=== PATIENT | female | born 1985 | race Caucasian/White ===

== ENCOUNTER 2016-07-19 19:57 | Inpatient (IN) ==
[2016-07-19] MEDS ORDERED: AMBIEN PO PRN (20:11)
[2016-07-19] MEDS ORDERED: TYLENOL PO PRN (20:11)
[2016-07-19] MEDS ORDERED: PEPCID PO ONE (20:11)
[2016-07-19] MEDS ORDERED: PEPCID PO PRN (20:11)
[2016-07-19] MEDS ORDERED: PEPCID IV PRN (20:11)
[2016-07-19] MEDS ORDERED: BRETHINE SUBQ PRN (20:11)
[2016-07-19] MEDS ORDERED: STADOL IV PRN ×2 (20:11)
[2016-07-19] MEDS ORDERED: ZOFRAN IV PRN (20:11)
[2016-07-19] MEDS ORDERED: REGLAN PO ONE (20:11)
[2016-07-19] MEDS ORDERED: KEFZOL 1 GM/D5W 1 GM/50 ML IVPB IV PRN (20:11)
[2016-07-19] MEDS: LR 1,000 ML IV ONE (21:15)
[2016-07-19 21:43] LABS: MANUAL DIFF NEEDED? NO
[2016-07-19 21:43] LABS: URINE SOURCE VOIDED
[2016-07-19 22:00] LABS: BASO% 0.3 % (0.0-0.8); EOS# 0.24 X1000 (0.0-0.7); EOS% 1.7 % (0.0-10.0); IMM GRAN# 0.15 X1000 (0.0-0.04); LYMPH# 3.28 X1000 (1.2-3.4); LYMPH% 22.8 % (20.5-51.1); MCH 29.2 PG (27-31); MCHC 34.3 g/dL (33-37); MCV 85.2 FL (81-99); MONO# 1.48 X1000 (0.11-0.59); MONO% 10.3 % (1.7-9.3); MPV 10.9 FL (7.4-10.4); NEUT% 63.9 % (42.2-75.2); PLT 280 X1000 (130-400); RBC 4.11 XMIL (4.2-5.4)
[2016-07-19] MEDS ORDERED: CYTOTEC PO ONE (22:00)
[2016-07-19 22:08] LABS: UR AMPHETAMINES QUAL NONE DETECTED (NONE DETECT); UR BARBITUATES QUAL NONE DETECTED (NONE DETECT); UR BENZODIAZEPIN QUAL NONE DETECTED (NONE DETECT); UR CANNABINOIDS QUAL NONE DETECTED (NONE DETECT); UR COCAINE QUAL NONE DETECTED (NONE DETECT); UR MDMA QUAL NONE DETECTED (NONE DETECT); UR METHADONE QUAL NONE DETECTED (NONE DETECT); UR METHAMPHETAMINE QUAL NONE DETECTED (NONE DETECT); UR OPIATES QUAL NONE DETECTED (NONE DETECT); UR OXYCODONE QUAL NONE DETECTED (NONE DETECT); UR PCP QUAL NONE DETECTED (NONE DETECT); UR TCA QUAL NONE DETECTED (NONE DETECT)
[2016-07-19 22:23] LABS: BILIRUBIN URINE NEGATIVE (NEGATIVE); BLOOD URINE NEGATIVE (NEGATIVE); CLARITY CLEAR (CLEAR); COLOR YELLOW; GLUCOSE URINE NEGATIVE (NEGATIVE); LEUKOCYTES URINE 1+ (NEGATIVE); NITRITE URINE NEGATIVE (NEGATIVE); PH URINE 6.5; PROTEIN URINE NEGATIVE (NEGATIVE); UROBILINOGEN URINE NORMAL
[2016-07-20] MEDS: LR 1,000 ML IV ONE ×2 (00:01→07:45)
[2016-07-20] MEDS: STADOL IV PRN ×2 (00:05→04:19)
[2016-07-20] MEDS ORDERED: CYTOTEC PO SCH (02:00)
[2016-07-20] MEDS ORDERED: FENTANYL-BUPIV-NS 2 MCG-0.1% 200 ML EPIDURAL PRN (02:17)
[2016-07-20] MEDS ORDERED: MARCAINE 0.25% PF INJ PRN (02:17)
[2016-07-20] MEDS ORDERED: PITOCIN 30 UNITS/LR 30 UNITS/500 ML IV.SOLN IV SCH (07:00)
[2016-07-20] MEDS ORDERED: XYLOCAINE-MPF 1% INJ ONE (07:07)
[2016-07-20] MEDS ORDERED: MINERAL OIL MISC ONE (07:07)
[2016-07-20] MEDS: LR 1,000 ML IV SCH ×3 (09:04→17:24)
[2016-07-20] MEDS ORDERED: PEPCID IV ONE (11:30)
[2016-07-20] MEDS ORDERED: BICITRA PO ONE (11:30)
[2016-07-20] MEDS ORDERED: XYLOCAINE-MPF 2% ONE (14:44)
[2016-07-20] MEDS ORDERED: MARCAINE 0.5% PF ONE (15:03)
[2016-07-20] MEDS ORDERED: NAROPIN 0.2% ONE (17:22)
[2016-07-20] MEDS ORDERED: PITOCIN ONE ×2 (19:06→19:19)
[2016-07-20] MEDS ORDERED: BICITRA ONE (19:06)
[2016-07-20] MEDS ORDERED: TORADOL ONE (19:19)
[2016-07-20] MEDS ORDERED: ZOFRAN ONE (19:19)
[2016-07-20] MEDS ORDERED: FENTANYL ONE (19:25)
[2016-07-20] MEDS ORDERED: DURAMORPH ONE (19:25)
[2016-07-20] MEDS ORDERED: DULCOLAX PR PRN (19:29)
[2016-07-20] MEDS ORDERED: MYLICON PO PRN (19:29)
[2016-07-20] MEDS ORDERED: CYTOTEC PO PRN (19:29)
[2016-07-20] MEDS ORDERED: AMBIEN PO PRN (19:29)
[2016-07-20] MEDS ORDERED: PHENERGAN IM PRN (19:29)
[2016-07-20] MEDS ORDERED: PERCOCET-5 PO PRN (19:29)
[2016-07-20] MEDS ORDERED: M-M-R II VACCINE SUBQ ONE (19:29)
[2016-07-20] MEDS ORDERED: DEMEROL IM PRN (19:29)
[2016-07-20] MEDS ORDERED: HYDROXYZINE IM PRN (19:29)
[2016-07-20] MEDS ORDERED: PITOCIN IM PRN (19:29)
[2016-07-20] MEDS ORDERED: HYDROXYZINE PO PRN (19:29)
[2016-07-20] MEDS ORDERED: BOOSTRIX VACCINE IM ONE (19:29)
[2016-07-20] MEDS ORDERED: DEMEROL PO PRN ×2 (19:29)
[2016-07-20] MEDS ORDERED: PITOCIN 10 UNITS/LR 10 UNIT/1,000 ML IV.SOLN IV SCH (19:30)
[2016-07-20] MEDS ORDERED: LR 1,000 ML ONE (19:39)
--- NOTE | 2016-07-20 19:41 | HISTORY AND PHYSICAL ---
PREOPERATIVE DIAGNOSES: 1. Intrauterine at 40 and 3 weeks. Arrest of dilation. 2. Arrest of descent. 3. Nonreassuring heart tones. PLANNED PROCEDURE: Primary low transverse section. HISTORY: Ms. Guadalupe is a 30-year-old, 2, para 1, with estimated date of delivery of 07/17/2016 who was admitted last night for routine labor induction. She was closed and she was given Cytotec overnight. There were some heart tone rate decelerations, but good recovery. In the morning, she was started on Pitocin. Had decelerations throughout the day, but always maintaining good [id number]-[id number]-xgor, no real concern of the baby, but she made very slow progress. At this point, she has been 8 cm for approximately 2 hours and has not advanced past a -2 station with caput forming and have discussed with patient probability of delivery with the above findings the patient agrees, and all questions were answered regarding this. PAST DELIVERY: Vaginal delivery at 37 weeks of a 6 pound viable female infant. PAST MEDICAL HISTORY: She has no past medical history. PAST SURGICAL HISTORY: She has no past surgical history. ALLERGIES: She has no known drug allergies. MEDICATIONS: She is on [id number] vitamins. Again, no allergies. SOCIAL HISTORY: She lives with her and their daughter. She denies tobacco, alcohol, or drug use. FAMILY HISTORY: Noncontributory. PHYSICAL EXAMINATION: VITAL SIGNS: Have been stable. GENERAL: She is alert and she is cooperative. NECK: Supple. LUNGS: Clear. HEART: Regular sinus rhythm. ABDOMEN: Gravid. PELVIC: Exam as above. EXTREMITIES: No cyanosis clubbing edema. LABORATORY: Hemoglobin and hematocrit 12/35, platelets are 280,000. She has had normal labs. Her GBS was negative. She passed her 1 hour oral glucose tolerance test. Rubella immune. Hepatitis B nonreactive. RPR nonreactive. HIV nonreactive. GC and Chlamydia negative. ASSESSMENT: As above. PLAN: Primary low transverse section. cc: Jack Mata MD
[2016-07-20 20:06] LABS: BE -9.7 mmoll (-3.0-3.0); BLOOD TYPE ARTERIAL; METHB 1.8 % (0.0-1.5); O2(CT) 1.3 mL/dL (15.0-23.0); SAMPLE BLOOD; SAO2 5.7 % (95.0-100.0); THB 16.9 g/dL (11.5-17.4)
[2016-07-20 20:10] LABS: DRAW SITE UMBILICAL; PCO2(98.6) 81 mmHg (35-45); pH(98.6) 7.06 (7.35-7.45)
[2016-07-20 20:11] LABS: ALLEN TEST NO; MODALITY ROOM AIR; PO2(98.6) 9 mmHg (60-100)
[2016-07-20] MEDS ORDERED: ZOFRAN ODT PO PRN (21:08)
[2016-07-20] MEDS ORDERED: ZOFRAN IV PRN ×2 (21:08)
[2016-07-20] MEDS ORDERED: BENADRYL IV PRN (21:08)
[2016-07-20] MEDS ORDERED: NARCAN INJ PRN (21:08)
[2016-07-20] MEDS ORDERED: DILAUDID IV PRN (21:11)
--- NOTE | 2016-07-20 23:49 | OPERATIVE NOTE ---
PROCEDURE DATE: 07/20/2016 PREOPERATIVE DIAGNOSES: 1. Intrauterine at 40 and 3. 2. Arrest of dilation. 3. Arrest of descent. 4. Nonreassuring heart tones. POSTOPERATIVE DIAGNOSES: 1. Intrauterine at 40 and 3. 2. Arrest of dilation. 3. Arrest of descent. 4. Nonreassuring heart tones. 5. Occiput posterior. FINDINGS: Viable male . Do not have Apgars at this time, nor do I have a cord pH at this time. Weight was 8 pounds 5 ounces. The patient's right ovary was scarred to her posterior uterus. That was dissected off. ESTIMATED BLOOD LOSS: 600 mL. COMPLICATIONS: No complications. COUNTS: All counts correct. DRAINS: Paul catheter. DESCRIPTION OF PROCEDURE: Please refer to Ms. Guadalupe's records and H and P. She was admitted last night. Received Cytotec and Pitocin today. Had heart tone decelerations, and did not progress. Decision was made to proceed with delivery. She was brought to the operating room, where her epidural was dosed. She was then prepped and draped. A Paul catheter had already been inserted. Adequate anesthesia was verified to the T10 level. A Pfannenstiel skin incision was made across the lower abdomen. Subcutaneous tissue was cut down to the fascia. The cut on the fascia was extended laterally with curved Arzate's. Slightly dissected off of the underlying rectus muscle. Muscle pulled to the side. Peritoneum entered bluntly. Bladder blade was placed. Hysterotomy incision was made in the lower uterine segment in the midline, then extended by pulling cephalad and caudad. The infant pulled out of the pelvis, lifted out of the pelvis, converted from occiput posterior to occiput anterior and delivered. Cord doubly clamped and then cut. Care of infant taken over by nursery personnel. A section of the cord was clamped off for cord pH, and then cord blood was obtained. Uterus was massaged to deliver the placenta, which delivered intact. Uterus was then exteriorized, and wiped free of clots and remaining placental tissue. Hysterotomy incision was closed in a single layer with a 1-0 chromic running and locking. Good hemostasis was noted. Inspection revealed the right ovary adhesed to the posterior uterus. This was dissected off with the Bovie. It was hemostatic. Uterus put back into the abdomen. Both ovaries and tubes were normal, as was the fundus of the uterus. The uterus was put back into the abdomen. Irrigation was done. Good hemostasis. Bladder allowed to fall into place. The peritoneum was reapproximated with 0 chromic. Muscle plicated in the midline with same 0 chromic. Fascia reapproximated with interrupted stitches of 0 Vicryl, followed by a running nonlocking stitch of 0 Vicryl. Subcutaneous tissue irrigated and made hemostatic by electrocautery, and then Marie's fascia was closed with 3-0 chromic. The skin was closed with 4-0 Biosyn in a subcuticular stitch. All counts were correct. She was taken to the recovery room in stable condition. cc: Jack Mata MD
[2016-07-21] MEDS: TORADOL IV SCH ×3 (03:23→09:09)
[2016-07-21] MEDS: PITOCIN 20 UNITS/LR 20 UNITS/1,000 ML IV.SOLN IV ONE ×2 (04:53)
[2016-07-21] MEDS: PERICOLACE PO SCH ×2 (04:54→21:37)
[2016-07-21 07:28] LABS: MANUAL DIFF NEEDED? NO
[2016-07-21 07:43] LABS: BASO% 0.1 % (0.0-0.8); EOS# 0.06 X1000 (0.0-0.7); EOS% 0.3 % (0.0-10.0); HEMATOCRIT 29.3 % (37.0-47.0); HEMOGLOBIN 9.5 g/dL (12.0-16.0); IMM GRAN# 0.06 X1000 (0.0-0.04); IMM GRAN% 0.3 % (0.0-0.5); LYMPH# 3.26 X1000 (1.2-3.4); LYMPH% 17.6 % (20.5-51.1); MCH 28.3 PG (27-31); MCHC 32.4 g/dL (33-37); MCV 87.2 FL (81-99); MONO# 1.38 X1000 (0.11-0.59); MONO% 7.5 % (1.7-9.3); MPV 10.1 FL (7.4-10.4); NEUT% 74.2 % (42.2-75.2); PLT 270 X1000 (130-400); RBC 3.36 XMIL (4.2-5.4)
[2016-07-21] MEDS: PRECARE PO SCH (09:07)
[2016-07-21] MEDS: MYLICON PO SCH ×4 (09:07→21:37)
[2016-07-21] MEDS ORDERED: LR 1,000 ML IV SCH (19:21)
[2016-07-21] MEDS: PERCOCET-10 PO PRN ×2 (19:50→23:33)
[2016-07-21] MEDS: MOTRIN PO PRN (23:33)
[2016-07-22] MEDS: PRECARE PO SCH (08:46)
[2016-07-22] MEDS: MYLICON PO SCH ×4 (08:46→21:07)
[2016-07-22] MEDS: PERCOCET-10 PO PRN ×2 (08:49→16:59)
[2016-07-22] MEDS: MOTRIN PO PRN ×2 (08:50→16:59)
[2016-07-22] MEDS: PERICOLACE PO SCH (21:07)
[2016-07-23] MEDS: MOTRIN PO PRN (04:38)
[2016-07-23] MEDS: PERCOCET-10 PO PRN (04:38)
--- NOTE | 2016-07-23 08:42 | DISCHARGE SUMMARY ---
ADMISSION DATE: 07/19/2016 DISCHARGE DATE: 07/23/2016 PRINCIPAL DIAGNOSIS: Term intrauterine , failure to progress, nonreassuring heart tones. PRINCIPAL PROCEDURE: Primary low transverse section. HOSPITAL COURSE: The patient was admitted by Dr. Mata and underwent a primary section for delivery. She had a male infant born. Postoperatively she did well. Postop hematocrit was 29. At this time she is discharged home on Percocet for pain. She will be followed up in the office in a week. Discharge instructions were given. cc: MD Jack Becerril MD
[2016-07-23] MEDS: MYLICON PO SCH (08:51)
[2016-07-23] MEDS: PRECARE PO SCH (08:51)
== END 2016-07-23 11:00 | disposition home or self-care (01) ==
LOC: P.LD 19:57
PROVIDERS: ADMIT Obstetrics & Gynecology; ATTEND Obstetrics & Gynecology